=== PATIENT | female | born 1965 | race Caucasian/White ===

== ENCOUNTER → 2017-07-07 | Outpatient (CLI) | payer OTHER ==
[2013-09-14 22:20] VITALS: BP 116/64
[~2017-07-07] MED LIST: FLEXERIL 1010 MG/TAB PO; NORCO 325 MG-51 TA1 PO
== END ==
LOC: MAMMO 10:00 → RAD 10:00 → MAMMO 14:08
DX: Z12.31 Encounter for screening mammogram for malignant neoplasm of breast (principal); N63.10 Unspecified lump in the right breast, unspecified quadrant

== ENCOUNTER → 2017-07-16 | Outpatient (CLI) | payer OTHER ==
[2013-09-14 22:20] VITALS: BP 116/64
== END ==
LOC: MAMMO 13:23
DX: N63.10 Unspecified lump in the right breast, unspecified quadrant (principal)

== ENCOUNTER → 2017-07-27 | Day surgery (SDC) | payer OTHER ==
[2013-09-14 22:20] VITALS: BP 116/64
== END ==
LOC: MSO 07:20
DX: Z12.11 Encounter for screening for malignant neoplasm of colon (principal); K63.5 Polyp of colon; F17.210 Nicotine dependence, cigarettes, uncomplicated; K21.9 Gastro-esophageal reflux disease without esophagitis; Z68.37 Body mass index [BMI] 37.0-37.9, adult
CPT/HCPCS: 00811; J2704; J7120

== ENCOUNTER → 2017-11-02 | Outpatient (CLI) | payer OTHER ==
[2013-09-14 22:20] VITALS: BP 116/64
== END ==
LOC: PT 12:29 → EDSTATUS 13:21 → PT 14:00
DX: Z01.818 Encounter for other preprocedural examination (principal); M25.561 Pain in right knee

== ENCOUNTER 2017-12-15 14:30 | Outpatient (RCR) | payer OTHER ==
[2013-09-14 22:20] VITALS: BP 116/64
== END 2017-12-15 15:00 | disposition home or self-care (01) ==
LOC: PT 14:30
DX: Z47.89 Encounter for other orthopedic aftercare (principal)

== ENCOUNTER → 2017-12-21 | Outpatient (CLI) | payer OTHER ==
[2013-09-14 22:20] VITALS: BP 116/64
== END ==
LOC: MAMMO 07:45
DX: N63.11 Unspecified lump in the right breast, upper outer quadrant (principal)

== ENCOUNTER → 2018-08-02 | Day surgery (SDC) | payer BC ==
[2013-09-14 22:20] VITALS: BP 116/64
== END ==
LOC: MSO 07:11
DX: D12.5 Benign neoplasm of sigmoid colon (principal); K63.5 Polyp of colon; Z86.010 Personal history of colon polyps; F17.210 Nicotine dependence, cigarettes, uncomplicated
CPT/HCPCS: 00811; A4649; J2704; J7120

== ENCOUNTER 2018-10-19 08:16 | Emergency (ER) | payer BC ==
[~2018-10-19] VITALS: Ht 165.1 cm; Wt 104.5 kg
[2018-10-19 09:11] LABS: BASO # 0.1 (0.02-0.10); EOS # 0.3 (0.04-0.40); EOS % 3.7 % (1.0-5.0); HEMATOCRIT 41.3 % (37.0-47.0); HEMOGLOBIN 13.5 g/dL (12.5-16.0); LYMPH# 2.1 (1.50-4.00); MEAN CELL VOLUME 90 fl (78-100); MEAN CORPUSCULAR HEMOGLOBIN 29 pg (27-31); MEAN CORPUSCULAR HGB CONC 33 g/dL (33-37); MEAN PLATELET VOLUME 10.9 fl (7.4-10.4); MONO # 0.7 (0.20-0.80); NEU # 4.3 (1.40-6.50); PLATELET COUNT 274 K/mm3 (130-400); RED BLOOD COUNT 4.59 M/mm3 (4.10-5.30); WHITE BLOOD COUNT 7.4 K/mm3 (4.8-10.8)
[2018-10-19 09:17] LABS: PROTHROMBIN TIME 8.9 SECONDS (9.0-12.0)
[2018-10-19 09:25] LABS: ALBUMIN 4.2 g/dL (3.5-5.0); TOTAL BILIRUBIN 0.8 mg/dL (0.2-1.2); TOTAL PROTEIN 7.5 g/dL (6.4-8.3)
[2018-10-19 12:50] VITALS: BP 128/78
== END 2018-10-19 12:50 | disposition short-term general hospital (02) ==
LOC: ED 08:16
PROVIDERS: Nurse Practitioner Primary Care
DX: K80.70 Calculus of gallbladder and bile duct without cholecystitis without obstruction (principal); K21.9 Gastro-esophageal reflux disease without esophagitis; G43.909 Migraine, unspecified, not intractable, without status migrainosus; F17.210 Nicotine dependence, cigarettes, uncomplicated
CPT/HCPCS: C9113; J1885; J2270; J2405; J3010; J7030; Q9967

== ENCOUNTER → 2018-11-16 | Outpatient (CLI) | payer BC ==
[2018-10-19 12:50] VITALS: BP 128/78
== END ==
LOC: MAMMO 09:15
DX: Z12.31 Encounter for screening mammogram for malignant neoplasm of breast (principal)

== ENCOUNTER → 2019-06-09 | Outpatient (CLI) | payer BC | LOC: RAD 15:03 | DX: S83.242A Other tear of medial meniscus, current injury, left knee, initial encounter (principal); M17.12 Unilateral primary osteoarthritis, left knee; M25.462 Effusion, left knee ==

== ENCOUNTER → 2019-08-03 | Outpatient (CLI) | payer BC | LOC: RAD 09:39 | DX: M17.11 Unilateral primary osteoarthritis, right knee (principal) ==

== ENCOUNTER → 2019-11-02 | Outpatient (CLI) | payer BC | LOC: PT 08:27 → EDSTATUS 08:30 | DX: Z47.1 Aftercare following joint replacement surgery (principal); Z96.651 Presence of right artificial knee joint ==

== ENCOUNTER 2019-12-29 14:30 | Outpatient (RCR) | payer BC | END 2019-12-29 15:00 | disposition still patient (30) | LOC: PT 14:30 | DX: M25.562 Pain in left knee (principal); Z96.652 Presence of left artificial knee joint ==

== ENCOUNTER 2020-12-06 08:38 | Emergency (ER) | payer BC ==
[2020-12-06] MEDS ORDERED: PANTOPRAZOLE SO40 MG PO (08:53)
[2020-12-06] MEDS ORDERED: ROSUVASTATIN CAL5 MG PO (08:53)
[2020-12-06 09:06] LABS: BASO # 0.07 (0.02-0.10); EOS # 0.28 (0.04-0.40); EOS % 3.5 % (1.0-5.0); HEMATOCRIT 42.4 % (37.0-47.0); HEMOGLOBIN 14.2 g/dL (12.5-16.0); LYMPH# 1.78 (1.50-4.00); MEAN CELL VOLUME 90 fl (78-100); MEAN CORPUSCULAR HEMOGLOBIN 30 pg (27-31); MEAN CORPUSCULAR HGB CONC 34 g/dL (33-37); MEAN PLATELET VOLUME 10.2 fl (7.4-10.4); MONO # 0.67 (0.20-0.80); NEU # 5.12 (1.40-6.50); PLATELET COUNT 296 K/mm3 (130-400); RED BLOOD COUNT 4.72 M/mm3 (4.10-5.30); WHITE BLOOD COUNT 7.9 K/mm3 (4.8-10.8)
[2020-12-06 09:28] LABS: ALBUMIN 4.1 g/dL (3.5-5.0); POTASSIUM 4.3 mmol/L (3.5-5.1); SODIUM 139 mmol/L (136-145)
[2020-12-06 09:29] LABS: CALCIUM 9.3 mg/dL (8.3-10.5)
[2020-12-06 09:30] LABS: GLUCOSE 140 mg/dL (65-105); TOTAL PROTEIN 7.5 g/dL (6.4-8.3)
[2020-12-06 09:31] LABS: CARBON DIOXIDE 24 mmol/L (22-29)
[2020-12-06 09:36] LABS: AST-SGOT 34 U/L (5-34)
[2020-12-06 09:37] LABS: ALT/SGPT 37 U/L (0-55)
[2020-12-06 09:43] LABS: TROPONIN-I < 0.03 ng/mL (<0.030)
[2020-12-06 10:03] VITALS: BP 114/72
== END 2020-12-06 10:00 | disposition home or self-care (01) ==
LOC: ED 08:38
PROVIDERS: Physician Assistant
DX: R07.89 Other chest pain (principal); E78.5 Hyperlipidemia, unspecified; K21.9 Gastro-esophageal reflux disease without esophagitis; F17.210 Nicotine dependence, cigarettes, uncomplicated; Z79.899 Other long term (current) drug therapy
CPT/HCPCS: J1885

== ENCOUNTER 2020-12-17 11:11 | Emergency (ER) | payer BC ==
[~2020-12-17 11:11] MED LIST changes: +PANTOPRAZOLE SO40 MG PO; +ROSUVASTATIN CAL5 MG PO
[2020-12-17 13:17] VITALS: BP 122/59
== END 2020-12-17 13:09 | disposition home or self-care (01) ==
LOC: ED 11:11
DX: S63.502A Unspecified sprain of left wrist, initial encounter (principal); K21.9 Gastro-esophageal reflux disease without esophagitis; E78.5 Hyperlipidemia, unspecified; Z79.899 Other long term (current) drug therapy; W01.0XXA Fall on same level from slipping, tripping and stumbling without subsequent striking against object, initial encounter

== ENCOUNTER 2021-06-11 15:17 | Outpatient (RCR) | payer OTHER | END 2021-06-14 23:59 | disposition home or self-care (01) | LOC: PT 15:17 | DX: S46.811D Strain of other muscles, fascia and tendons at shoulder and upper arm level, right arm, subsequent encounter (principal); R20.8 Other disturbances of skin sensation ==

== ENCOUNTER 2021-06-17 14:30 | Outpatient (RCR) | payer OTHER | END 2021-07-05 13:00 | disposition home or self-care (01) | LOC: PT 14:30 | DX: S46.811D Strain of other muscles, fascia and tendons at shoulder and upper arm level, right arm, subsequent encounter (principal); R20.8 Other disturbances of skin sensation ==

== ENCOUNTER → 2022-08-13 | Outpatient (CLI) | payer BC | LOC: MAMMO 09:04 | DX: Z12.31 Encounter for screening mammogram for malignant neoplasm of breast (principal) ==